=== PATIENT | female | born 1965 | race African-American/Black ===

== ENCOUNTER 2021-11-24 00:23 | Inpatient (IN) ==
[2021-11-24] MEDS ORDERED: LORazepam 2 mg VIAL 1 ml IV PUSH ONE (01:08)
[2021-11-24] MEDS ORDERED: Lorazepam PYXIS KEY PRN (01:08)
[2021-11-24] MEDS ORDERED: Labetalol IV 5 MG/ML 20 ml VIAL IV PUSH ONE ×2 (01:13→21:28)
[2021-11-24 01:43] LABS: ABS Lymphocytes 1.5 10^3/ul (1.0-4.8); ABS Monocytes 0.3 10^3/ul (0-0.8); ABS Neutrophils 2.8 10^3/ul (1.5-7.7); Hematocrit 40 % (35-47); Hemoglobin 13.5 g/dL (12.0-16.0); Lymphocyte % 31.5 %; Mean Corpuscular HGB Conc 34 g/dL (31-36); Mean Corpuscular Hemoglobin 32 pg (27-31); Mean Corpuscular Volume 93 fL (80-97); Mean Platelet Volume 8.1 fL (7.4-10.4); Nucleated Red Blood Cells % 0.1; Platelet Count 276 10^3/uL (150-450); Red Blood Count 4.28 10^6 /uL (3.70-4.87); Red Cell Distribution Width 14 % (10-15); White Blood Count 4.7 10^3/uL (3.5-10.8)
[2021-11-24 02:33] LABS: INR 1.09 (0.86-1.15)
[2021-11-24 03:27] LABS: Albumin 3.9 g/dL (3.2-5.2); Albumin/Globulin Ratio 1.3 (1-3); Calcium 9.5 mg/dL (8.6-10.3); Potassium 3.8 mmol/L (3.5-5.0); Total Bilirubin 0.4 mg/dL (0.2-1.0); Total Protein 6.9 g/dL (6.4-8.9); eGFR CKD-EPI 100.3 (>60)
[2021-11-24 04:26] LABS: High Sensitivity Troponin 1 Hr 55 pg/mL (<15)
[2021-11-24] MEDS ORDERED: Iodixanol (CONTRAST) 320 MG/ML 100 ML SDV IV ONE (04:37)
[2021-11-24 09:51] LABS: C Reactive Protein 2.86 mg/L (<8.01)
[2021-11-24 10:02] LABS: High Sensitivity Troponin 3 Hr 44 pg/mL (<15)
[2021-11-24] MEDS ORDERED: Ondansetron 4 mg VIAL 2 MG/ML 2 ml VIAL IV PRN (10:20)
[2021-11-24] MEDS ORDERED: Dextrose 50% Syringe 50 ml 25 GM/50 ML SYRINGE IV PUSH PRN (10:29)
[2021-11-24] MEDS ORDERED: Heparin DRIP 25,000 UNITS BAG 25,000 UNITS/500 ML BAG IV SCH (10:30)
[2021-11-24] MEDS ORDERED: Heparin 5000 UNITS/ML 1 mL VIAL IV SCH (11:00)
[2021-11-24 11:46] LABS: ABS Lymphocytes 1.4 10^3/ul (1.0-4.8); ABS Monocytes 0.3 10^3/ul (0-0.8); ABS Neutrophils 1.9 10^3/ul (1.5-7.7); Eosinophil % 1.1 %; Hematocrit 36 % (35-47); Hemoglobin 12.3 g/dL (12.0-16.0); Lymphocyte % 38.6 %; Mean Corpuscular HGB Conc 34 g/dL (31-36); Mean Corpuscular Hemoglobin 32 pg (27-31); Mean Corpuscular Volume 93 fL (80-97); Mean Platelet Volume 7.9 fL (7.4-10.4); Nucleated Red Blood Cells % 0.2; Platelet Count 257 10^3/uL (150-450); Red Blood Count 3.86 10^6 /uL (3.70-4.87); Red Cell Distribution Width 14 % (10-15); White Blood Count 3.6 10^3/uL (3.5-10.8)
[2021-11-24 12:17] LABS: HDL Cholesterol 39.9 mg/dL; eGFR CKD-EPI 97.1 (>60)
[2021-11-24] MEDS: Enoxaparin 40 MG/0.4 ML SYR SUBCUT SCH (18:08)
[2021-11-25 06:15] LABS: ABS Lymphocytes 1.7 10^3/ul (1.0-4.8); ABS Monocytes 0.4 10^3/ul (0-0.8); ABS Neutrophils 2.3 10^3/ul (1.5-7.7); Eosinophil % 0.9 %; Hematocrit 33 % (35-47); Hemoglobin 11.3 g/dL (12.0-16.0); Lymphocyte % 39.4 %; Mean Corpuscular HGB Conc 34 g/dL (31-36); Mean Corpuscular Hemoglobin 32 pg (27-31); Mean Corpuscular Volume 92 fL (80-97); Mean Platelet Volume 7.9 fL (7.4-10.4); Nucleated Red Blood Cells % 0.1; Platelet Count 259 10^3/uL (150-450); Red Blood Count 3.57 10^6 /uL (3.70-4.87); Red Cell Distribution Width 14 % (10-15); White Blood Count 4.4 10^3/uL (3.5-10.8)
[2021-11-25 06:40] LABS: Calcium 9.4 mg/dL (8.6-10.3); Magnesium 1.8 mg/dL (1.9-2.7); Potassium 3.7 mmol/L (3.5-5.0); eGFR CKD-EPI 98.7 (>60)
[2021-11-25] MEDS: Enoxaparin 40 MG/0.4 ML SYR SUBCUT SCH (16:25)
[2021-11-25 18:57] LABS: Ferritin 93.8 ng/mL (11-307)
[2021-11-26 05:20] LABS: ABS Lymphocytes 1.5 10^3/ul (1.0-4.8); ABS Monocytes 0.3 10^3/ul (0-0.8); ABS Neutrophils 2.2 10^3/ul (1.5-7.7); Eosinophil % 0.7 %; Hematocrit 36 % (35-47); Hemoglobin 12.2 g/dL (12.0-16.0); Lymphocyte % 36.7 %; Mean Corpuscular HGB Conc 34 g/dL (31-36); Mean Corpuscular Hemoglobin 32 pg (27-31); Mean Corpuscular Volume 94 fL (80-97); Mean Platelet Volume 8.1 fL (7.4-10.4); Nucleated Red Blood Cells % 0.1; Platelet Count 252 10^3/uL (150-450); Red Blood Count 3.84 10^6 /uL (3.70-4.87); Red Cell Distribution Width 14 % (10-15); White Blood Count 4.1 10^3/uL (3.5-10.8)
[2021-11-26 05:49] LABS: Calcium 9.4 mg/dL (8.6-10.3); Potassium 3.9 mmol/L (3.5-5.0); eGFR CKD-EPI 84.4 (>60)
[2021-11-26 08:36] LABS: Folate 9.41 ng/mL (5.90-24.80)
[2021-11-26] MEDS ORDERED: Iodixanol (CONTRAST) 320 MG/ML 100 ML SDV IV ONE (10:30)
[2021-11-26] MEDS: Enoxaparin 40 MG/0.4 ML SYR SUBCUT SCH (16:42)
[2021-11-26] MEDS ORDERED: Polyethylene Glycol 3350 17 GM PACKET PO PRN (19:44)
[2021-11-26] MEDS ORDERED: Senna TAB 8.6 mg TAB PO PRN (19:45)
[2021-11-26] MEDS ORDERED: Labetalol IV 5 MG/ML 20 ml VIAL IV PUSH ONE (23:00)
[2021-11-27 06:22] LABS: ABS Lymphocytes 1.5 10^3/ul (1.0-4.8); ABS Monocytes 0.3 10^3/ul (0-0.8); ABS Neutrophils 1.9 10^3/ul (1.5-7.7); Eosinophil % 0.7 %; Hematocrit 35 % (35-47); Hemoglobin 11.8 g/dL (12.0-16.0); Mean Corpuscular HGB Conc 34 g/dL (31-36); Mean Corpuscular Hemoglobin 32 pg (27-31); Mean Corpuscular Volume 94 fL (80-97); Nucleated Red Blood Cells % 0.1; Platelet Count 264 10^3/uL (150-450); Red Blood Count 3.74 10^6 /uL (3.70-4.87); Red Cell Distribution Width 14 % (10-15); White Blood Count 3.8 10^3/uL (3.5-10.8)
[2021-11-27 06:48] LABS: Calcium 9.4 mg/dL (8.6-10.3); eGFR CKD-EPI 92.5 (>60)
[2021-11-27] MEDS: Enoxaparin 40 MG/0.4 ML SYR SUBCUT SCH (18:22)
[2021-11-28 08:16] VITALS: BP 147/63
[2021-12-02 22:08] LABS: Urine Collection Duration 24 h; Urine Total Metanephrines 308 mcg/24 h; Urine Volume 1050 mL
== END 2021-11-28 12:53 | disposition home or self-care (01) | DRG 198 ==
LOC: ED 00:23 → EDHOLD 10:35 → SUATTDRO 10:35 → MEDTELE 16:12
PROVIDERS: ADMIT Internal Medicine; ATTEND Internal Medicine